=== PATIENT | female | born 2000 | race Caucasian/White ===

== ENCOUNTER 2024-01-30 15:43 | Emergency (ER) | payer OTHER, SELFPAY ==
[2024-01-30 16:00] VITALS: BP 127/79; PULSE 70; RESP 16; TEMP 36.9; O2SAT 100
--- NOTE | 2024-01-30 16:07 | ED_ITS ---
HPI - URI/Sore Throat General Chief Complaint: Upper Respiratory Infection Stated Complaint: Sinus Infection Time Seen by Provider: 01/30/24 16:07 Source: patient Mode of arrival: ambulatory Limitations: no limitations History of Present Illness HPI Narrative: 24-year-old female presents with complaint of nasal congestion, sinus pressure, cough, postnasal drainage, ear pressure for approximately 1 week. Afebrile. Not taking any [id number] medications to treat her symptoms. No chest pain or shortness of breath. All systems reviewed and negative except as noted above. Related Data Home Medications Medication Instructions Recorded Confirmed norethindrone 1 mg-ethinyl 1 tablet PO DAILY 01/30/24 01/30/24 estradiol 20 mcg (24)-iron 75 mg (4) tablet ([place]isovi 24 Fe) spironolactone 50 mg tablet 50 mg PO DAILY 01/30/24 01/30/24 Allergies Allergy/AdvReac Type Severity Reaction Status Date / Time amoxicillin Allergy Rash Verified 01/30/24 16:06 Penicillins Allergy Rash Verified 01/30/24 16:06 Review of Systems Review of Systems: CONSTITUTIONAL: Denies fever, chills, or sweats. EYES: Denies visual changes, redness, or discharge. ENT: Reports rhinorrhea, congestion, sinus pressure, sore throat, bilateral ear pressure CARDIOVASCULAR: Denies chest pain, palpitations, or edema. RESPIRATORY: reports cough. Denies dyspnea. GASTROINTESTINAL: Denies abdominal pain, nausea, vomiting, or diarrhea. GENITOURINARY: Denies dysuria or hematuria. SKIN: Denies rash or itching. MUSCULOSKELETAL: Denies back pain, joint pain, or myalgia. NEUROLOGIC: Denies headache, numbness, or weakness. PSYCHIATRIC: Denies anxiety or depression. All other systems reviewed are negative, except as documented in HPI. PMFSH Comments At time of signature, agree with nursing past medical, surgical, social and family history. There is no relevant family history pertinent to the presenting complaint. Exam Narrative: GENERAL: This is a well-nourished, well-developed patient, in no apparent distress. HEAD: normocephalic, atraumatic. EYES: PERRL. Sclera clear/white. Vision is grossly intact. EARS: External ears normal, auditory canals clear and without drainage, TMs normal without perforation. Hearing grossly intact. NOSE: External nose normal with purulent nasal drainage, erythema and swelling to bilateral nares. Frontal and maxillary sinus tenderness on palpation. THROAT: Mucous membranes moist, Clear postnasal drainage, mild erythema NECK: Neck supple, non-tender without lymphadenopathy, masses or thyromegaly. CARDIOVASCULAR: Regular rate and rhythm without murmurs, gallops, or rubs. RESPIRATORY: Clear to auscultation. Breath sounds equal bilaterally. No wheezes, rales, or rhonchi. SKIN: warm, Dry, intact with no suspicious lesions or rash, good texture and turgor. NEURO: awake, alert, and oriented to person, place and time. There were no obvious focal neurologic abnormalities. EXTREMITIES: No joint tenderness, effusion, or edema noted. Course Course Level of Care: Express Care Visit Vital Signs Vital signs: Vital Signs Temperature 36.9 C 01/30/24 16:00 Pulse Rate 70 01/30/24 16:00 Respiratory Rate 16 01/30/24 16:00 Blood Pressure 127/79 01/30/24 16:00 Pulse Oximetry 100 01/30/24 16:00 Oxygen Delivery Room Air 01/30/24 16:00 Temperature 36.9 C 01/30/24 16:00 Pulse Rate 70 01/30/24 16:00 Respiratory Rate 16 01/30/24 16:00 Blood Pressure 127/79 01/30/24 16:00 Pulse Oximetry 100 01/30/24 16:00 Oxygen Delivery Room Air 01/30/24 16:00 reviewed MDM - URI/Sore Throat MDM Narrative Medical decision making narrative: Patient is aware of diagnosis, understands and agrees to treatment plan. Anticipatory guidance given. Patient agrees to follow-up as directed and is aware of reasons to seek care at the emergency department. Portions of this record may have been created with voice recognition software treat patient with antibiotic for bacterial sinusitis due to duration of symptoms and exam findings. Differential Diagnosis Differential diagnosis: Likely upper respiratory infection, sinusitis, viral infection and pharyngitis Discharge Plan Discharge Clinical Impression: Acute bacterial sinusitis Patient Disposition: Home, Self-Care Condition: Stable Instructions: Antibiotic Form, Sinusitis (ED) Additional Instructions: Take medications as prescribed. Purchase an mplu-ecy-mjiegct antihistamine such as Claritin or Zyrtec and take as directed on packaging. Take Tylenol or ibuprofen every 6-8 hours as needed for pain. Drink at least 64 oz of water a day. Follow-up with your primary care physician if symptoms are not improving. Prescriptions: New doxycycline hyclate 100 mg capsule 100 mg PO BID 7 Days Qty: 14 0RF benzonatate 200 mg capsule 200 mg PO TID PRN (Reason: cough) Qty: 20 0RF fluticasone propionate [Flonase Allergy Relief] 50 mcg/actuation spray,suspension 1 spray intranasal BID Qty: 16 0RF Rx Instructions: administer into each nostril No Action spironolactone 50 mg tablet 50 mg PO DAILY Blisovi 24 Fe 1 mg-20 mcg (24)/75 mg (4) tablet 1 tablet PO DAILY Follow-up/Referrals: PHYSICIAN,EARLY CHILDHOOD EDUCATION SPECIALIST [Primary Care Provider] - Time of Disposition: 16:16
== END 2024-01-30 16:20 | disposition home or self-care (01) ==
PROVIDERS: Emergency Provider Nurse Practitioner Family
DX: J01.90 Acute sinusitis, unspecified (principal); B96.89 Other specified bacterial agents as the cause of diseases classified elsewhere
CPT/HCPCS: 99203; G0463

== ENCOUNTER 2024-12-23 16:24 | Emergency (ER) | payer OTHER, SELFPAY ==
[2024-12-23 16:35] VITALS: BP 136/62; PULSE 90; RESP 16; TEMP 36.9; O2SAT 100
--- NOTE | 2024-12-23 16:41 | ED_ITS ---
HPI - General Adult General Chief complaint: Unspecified Stated complaint: mono symptoms Time Seen by Provider: 12/23/24 16:40 Source: patient Mode of arrival: ambulatory Limitations: no limitations History of Present Illness HPI narrative: Jacqueline is a 24-year-old female patient presenting to the clinic today with complaints of possible mono. She reports boyfriend tested positive for mono today. She reports she is having sore throat for the past few days off and on. Sore throat was worse this morning but now has improved. She is wanting to be tested for mono. Denies any fevers, chills, body aches. No other URI symptoms Related Data Home Medications ?Medication ?Instructions ?Recorded ?Confirmed ?Last Taken ?Type spironolactone 50 mg tablet 50 mg PO DAILY 01/30/24 Unknown History IUD 12/23/24 Unknown History Allergies Allergy/AdvReac Type Severity Reaction Status Date / Time amoxicillin Allergy Rash Verified 12/23/24 16:36 Penicillins Allergy Rash Verified 12/23/24 16:36 Review of Systems Review of Systems: Pertinent positives per HPI. Patient denies any fever, chills, rash, headache, visual changes, dizziness, cough, shortness of breath, chest pain, palpitations, nausea, vomiting, diarrhea, constipation, abdominal pain, or any urinary issues. PMFSH Comments At the time of my signature, I reviewed and agree with the nursing past medical, surgical, social, and family history. There is no relevant family history pertinent to the patient complaint. Exam Narrative: General: Well-developed, well nourished, in no apparent distress Head: Normocephalic, atraumatic Eyes: Pupils equally round and reactive to light bilaterally, EOM intact, sclera and conjunctive clear, no discharge, lids normal Ears: TMs intact and clear, ear canals clear, no drainage, grossly hearing normal. Nose: Nares patent, no discharge, no inflammation, no sinus tenderness. Mouth: Oral pharynx without lesions or masses, good dentition, MMM. Neck: Supple, trachea midline, no enlargement of anterior or posterior cervical nodes, no thyroid masses or goiter palpable. Cardio: Regular rate and rhythm, s1 and s2 normal, no murmur appreciated. Resp: Clear to auscultation bilaterally, no rhonchi, rales, wheezing or rubs Course Course Emergency Course: Portions of this record may have been created with voice recognition software. Level of Care: Express Care Visit Vital Signs Vital signs: Vital Signs Temperature 36.9 C 12/23/24 16:35 Pulse Rate 90 12/23/24 16:35 Respiratory Rate 16 12/23/24 16:35 Blood Pressure 136/62 12/23/24 16:35 Pulse Oximetry 100 12/23/24 16:35 Oxygen Delivery Room Air 12/23/24 16:35 Temperature 36.9 C 12/23/24 16:35 Pulse Rate 90 12/23/24 16:35 Respiratory Rate 16 12/23/24 16:35 Blood Pressure 136/62 12/23/24 16:35 Pulse Oximetry 100 12/23/24 16:35 Oxygen Delivery Room Air 12/23/24 16:35 Vital signs reviewed Medical Decision Making MDM Narrative Medical decision making narrative: At the time of visit patient is resting comfortably on the exam table. Patient appears to be nontoxic. Complaints of possible mono. She reports boyfriend tested positive for mono today. She reports she is having sore throat for the past few days off and on. Sore throat was worse this morning but now has improved. She is wanting to be tested for mono. Denies any fevers, chills, body aches. No other URI symptoms. Patient has normal exam in the clinic today. [place] testing was ordered. Labs: [place] testing was negative in the clinic today. Plan: I suspect patient has sore throat. She has a normal exam in the clinic today. [place] test was negative. Supportive measures were discussed with the patient and they voiced understanding discharge instructions and agrees to treatment plan. Return precautions reviewed Differential Diagnosis Differential Diagnosis: [place], pharyngitis, strep, URI, viral syndrome Vital Signs Vital Signs: Vital Signs Temperature 36.9 C 12/23/24 16:35 Pulse Rate 90 12/23/24 16:35 Respiratory Rate 16 12/23/24 16:35 Blood Pressure 136/62 12/23/24 16:35 Pulse Oximetry 100 12/23/24 16:35 Oxygen Delivery Room Air 12/23/24 16:35 Temperature 36.9 C 12/23/24 16:35 Pulse Rate 90 12/23/24 16:35 Respiratory Rate 16 12/23/24 16:35 Blood Pressure 136/62 12/23/24 16:35 Pulse Oximetry 100 12/23/24 16:35 Oxygen Delivery Room Air 12/23/24 16:35 Lab Data Labs: Lab Results 12/23/24 Range/Units 16:52 POC Monoscreen Negative (Negative) Discharge Plan Discharge Clinical Impression: Acute sore throat, [place] exposure Patient Disposition: Home Condition: Stable Instructions: Antibiotic Form, Strep Throat (ED) Additional Instructions: [place] testing was negative in the clinic today. Increase fluids and stay well hydrated May take Tylenol or motrin as directed on bottle for pain/fever Cepacol spray, cough drops, throat lozenges, warm tea with honey/lemon, gargle salt water to soothe throat Go to the ED if you develop a worsening in your condition- high fever not controlled by Tylenol or Motrin, dehydration, weakness, lethargy, shortness of breath, or chest pain. Follow up with your PCP in 3-5 days if symptoms persist. Patient Language: Micronesian Prescriptions: No Action spironolactone 50 mg tablet 50 mg PO DAILY IUD Follow-up/Referrals: UNKNOWN,DOCTOR [Primary Care Provider] Time of Disposition: 16:53 Quality NIHSS Nursing Documentation ED NIHSS nursing documentation: reviewed/agree
[2024-12-23 16:54] LABS: EDMONONEGPOS Negative (Negative)
== END 2024-12-23 16:58 | disposition home or self-care (01) ==
PROVIDERS: Emergency Provider Nurse Practitioner Family
DX: J02.9 Acute pharyngitis, unspecified (principal); Z20.828 Contact with and (suspected) exposure to other viral communicable diseases
CPT/HCPCS: 36416; 86308; 99212; G0463